=== PATIENT | male | born 1930 | race Caucasian/White ===

== ENCOUNTER 2019-01-01 15:21 | Emergency (ER) | payer OTHER ==
[~2019-01-01] VITALS: Ht 175.3 cm; Wt 70.3 kg
[~2019-01-01 15:21] MED LIST: KEFLEX500 M1 PO
[2019-01-01 16:16] LABS: HEMATOCRIT 34.5 % (42.0-52.0); HEMOGLOBIN 11.7 gm/dL (14.0-18.0); MCH 32.4 pg (26.0-34.0); MCHC 33.8 g/dL (28.0-37.0); MCV 95.6 fL (80.0-100.0); PLATELET COUNT 209 thou/uL (150-400); RBC 3.61 mil/uL (4.50-6.00)
[2019-01-01 16:27] LABS: ANION GAP 13 mmol/L (7-16); BUN 28 mg/dL (7-18); CALCIUM 9.5 mg/dL (8.5-10.1); CHLORIDE 106 mmol/L (98-107); CO2 23 mmol/L (21-32); CREATININE 1.5 mg/dL (0.7-1.3); GLUCOSE 109 mg/dL (74-106); POTASSIUM 4.4 mmol/L (3.5-5.1); SODIUM 142 mmol/L (136-145)
[2019-01-01 16:36] LABS: TROPONIN-I <0.06 ng/mL (<0.06)
[2019-01-01 16:48] LABS: ABSOLUTE NEUTROPHILS 2.8 thou/uL (1.4-8.2); ANISOCYTOSIS 1+; OVALOCYTES 1+
[2019-01-01] MEDS ORDERED: TESSALON PERLE100 MG PO (17:08)
[2019-01-01 17:23] VITALS: BP 146/63
--- NOTE | 2019-01-02 09:01 | EKG ---
[facility] [place] [address] ELECTROCARDIOGRAM REPORT Name: JIMMYCOLE Room #: DEP RAPHAEL Kolb#: [id number] ������������������ Admission: 01/01/19 ������������������ Attend Phys: Discharge: 01/01/19 ������������������ Date of : [birth year] Report #: [id number] ����������������������������������������������������������������� [id number] THIS REPORT FOR: //name// [facility] ED Test Date: 2019-01-01 Test Time: 15:57:47 Pat Name: COLE MARQUEZ Department: Room: Gender: Stage Set Designer: ZA : 1930 Requested By: Joseph Porter Order Number: [id number] MD: Romeo Atwood Measurements Intervals Vivian Rate: 74 P: 41 DE: 250 QRS: -24 QRSD: 86 T: 79 QT: 380 QTc: 422 Interpretive Statements Sinus rhythm Prolonged DE interval Borderline left axis deviation Nonspecific ST and T wave abnormality Compared to ECG 07/13/2018 20:08:25 nonspecific change in the ST and T-wave segments Electronically Signed On 01-02-2019 9:00:52 BLEMISH REMOVER by Romeo Atwood [email or web address] ��������������������������������������������� <ELECTRONICALLY SIGNED> ���������������������������������������� By: Romeo Atwood MD, [facility] ��������������������������������������������� 01/02/19 0900 1557 1557 Romeo Atwood MD, [facility] /EPI
== END 2019-01-01 17:23 | disposition home or self-care (01) ==
LOC: ER 15:21
PROVIDERS: Emergency Medicine
DX: J06.9 Acute upper respiratory infection, unspecified (principal); I10 Essential (primary) hypertension; F32.9 Major depressive disorder, single episode, unspecified; E78.5 Hyperlipidemia, unspecified; F03.90 Unspecified dementia, unspecified severity, without behavioral disturbance, psychotic disturbance, mood disturbance, and anxiety